=== PATIENT | female | born 1965 | race Caucasian/White ===

== ENCOUNTER → 2019-04-15 | Outpatient (CLI) | payer OTHER ==
[~2019-04-15] MED LIST: ASPIRIN CHEWABL81 M1 PO; CELEXA20 MG PO; NICODERM C14 MG/241 T; NORVASC2.5 MG PO; ORPHENADRINE C100 M1 PO; PRAVASTATIN SOD10 MG PO
[2019-04-16 07:04] LABS: HEPATITIS B SURFACE AG Negative (Negative); HEPATITIS C VIRUS ANTIBODY <0.1 s/co (0.0-0.9)
[2019-04-16 08:06] LABS: RHEUMATOID ARTHRITIS FACTOR <10.0 IU/mL (0.0-13.9)
== END | disposition home or self-care (01) ==
LOC: LAB 09:55
PROVIDERS: Family Medicine
DX: S10.96XA Insect bite of unspecified part of neck, initial encounter (principal); M51.37 Other intervertebral disc degeneration, lumbosacral region; M50.30 Other cervical disc degeneration, unspecified cervical region; M85.88 Other specified disorders of bone density and structure, other site; R20.0 Anesthesia of skin; X58.XXXA Exposure to other specified factors, initial encounter; Y93.89 Activity, other specified; Y92.89 Other specified places as the place of occurrence of the external cause; Y99.8 Other external cause status

== ENCOUNTER 2020-05-26 18:28 | Emergency (ER) | payer OTHER ==
[~2020-05-26] VITALS: Ht 165.1 cm; Wt 71.7 kg
[2020-05-26 20:13] VITALS: BP 119/54
[2020-05-26] MEDS ORDERED: TESSALON PERLE100 M1 PO (20:33)
[2020-05-26] MEDS ORDERED: CEFUROXIME AXE250 MG PO (20:33)
== END 2020-05-26 21:17 | disposition home or self-care (01) ==
LOC: ED 18:28
DX: J06.9 Acute upper respiratory infection, unspecified (principal); J32.1 Chronic frontal sinusitis; F17.200 Nicotine dependence, unspecified, uncomplicated; Z79.899 Other long term (current) drug therapy

== ENCOUNTER 2020-12-28 09:17 | Emergency (ER) | payer OTHER ==
[~2020-12-28] VITALS: Wt 68.0 kg
[~2020-12-28 09:17] MED LIST changes: +CEFUROXIME AXE250 MG PO; +TESSALON PERLE100 M1 PO
[2020-12-28 09:22] VITALS: BP 165/87
[2020-12-28] MEDS ORDERED: CYCLOBENZAPRINE10 MG PO (12:01)
[2020-12-28] MEDS ORDERED: PREDNISONE50 MG PO (12:01)
== END 2020-12-28 12:15 | disposition home or self-care (01) ==
LOC: ED 09:17
DX: M25.552 Pain in left hip (principal); I10 Essential (primary) hypertension; F32.9 Major depressive disorder, single episode, unspecified; F17.200 Nicotine dependence, unspecified, uncomplicated; Z79.899 Other long term (current) drug therapy; Z98.51 Tubal ligation status

== ENCOUNTER → 2022-02-19 | Outpatient (CLI) | payer OTHER ==
[~2022-02-19] MED LIST changes: +CYCLOBENZAPRINE10 MG PO; +PREDNISONE50 MG PO
== END | disposition home or self-care (01) ==
LOC: MAMMO 00:19 → US 11:00
PROVIDERS: ATTEND Nurse Practitioner Women's Health
DX: Z12.31 Encounter for screening mammogram for malignant neoplasm of breast (principal); R10.12 Left upper quadrant pain

== ENCOUNTER 2022-07-15 10:05 | Emergency (ER) | payer OTHER ==
[~2022-07-15] VITALS: Ht 165.1 cm; Wt 72.6 kg
[2022-07-15 10:58] LABS: BASO # 0.1 10*3/uL (0.0-0.1); BASO % 0.9 % (0.0-1.0); EOS # 0.2 10*3/uL (0.0-0.4); EOS % 3.2 % (1.0-4.0); LYMPH # 2.5 10*3/uL (1.3-4.4); LYMPH % 43.6 % (27.0-41.0); MEAN CELL VOLUME 94.4 fl (81.0-99.0); MEAN CORPUSCULAR HGB 31.3 pg (27.0-31.0); MEAN CORPUSCULAR HGB CONC 33.2 g/dl (33.0-37.0); MEAN PLATELET VOLUME 10.5 fl (9.6-12.3); MONO # 0.6 10*3/uL (0.1-1.0); NEUT # 2.4 10*3/uL (2.3-7.9); NEUT % 41.9 % (47.0-73.0); PLATELET COUNT AUTOMATED 285 10*3/uL (130-400); RED BLOOD COUNT 4.66 10*6/uL (4.10-5.10); RED CELL DISTRI WIDTH 13.1 % (0-14.5); WHITE BLOOD COUNT 5.7 10*3/uL (4.8-10.8)
[2022-07-15 11:20] LABS: ALKALINE PHOSPHATASE 73 U/L (45-117); BUN 13 mg/dl (7-24); CHLORIDE 109 mmol/L (98-107); CREATININE 0.88 mg/dL (0.55-1.02); POTASSIUM 4.1 mmol/L (3.5-5.1); SGOT/AST 10 IU/L (3-35); SGPT/ALT 18 U/L (12-78); SODIUM 139 mmol/L (136-145); TOTAL PROTEIN 7.4 gm/dL (6.4-8.2)
[2022-07-15 13:00] VITALS: BP 144/59
[2022-07-15] MEDS ORDERED: PREDNISONE50 MG PO ×2 (13:27→13:55)
== END 2022-07-15 13:54 | disposition home or self-care (01) ==
LOC: ED 10:05
PROVIDERS: Internal Medicine
DX: M54.10 Radiculopathy, site unspecified (principal); Z79.899 Other long term (current) drug therapy; Z90.89 Acquired absence of other organs; Z98.51 Tubal ligation status

== ENCOUNTER → 2022-07-16 | Outpatient (CLI) | payer OTHER | END | disposition home or self-care (01) | LOC: RAD 10:27 | PROVIDERS: ATTEND Nurse Practitioner Family | DX: M54.2 Cervicalgia (principal) ==

== ENCOUNTER 2023-07-29 12:04 | Inpatient (IN) | payer OTHER ==
[~2023-07-29] VITALS: Ht 162.5 cm; Wt 75.7 kg
[2023-07-29 12:25] VITALS: BP 155/73
[2023-07-29 14:12] LABS: BASO # 0.1 10*3/uL (0.0-0.1); BASO % 1.1 % (0.0-1.0); EOS # 0.2 10*3/uL (0.0-0.4); EOS % 3.1 % (1.0-4.0); HEMATOCRIT 40.9 % (37.0-47.0); LYMPH # 2.8 10*3/uL (1.3-4.4); LYMPH % 40.3 % (27.0-41.0); MEAN CELL VOLUME 97.1 fl (81.0-99.0); MEAN CORPUSCULAR HGB 32.1 pg (27.0-31.0); MEAN PLATELET VOLUME 10.7 fl (9.6-12.3); MONO # 0.7 10*3/uL (0.1-1.0); NEUT # 3.2 10*3/uL (2.3-7.9); NEUT % 45.2 % (47.0-73.0); PLATELET COUNT AUTOMATED 288 10*3/uL (130-400); RED BLOOD COUNT 4.21 10*6/uL (4.10-5.10); RED CELL DISTRI WIDTH 13.2 % (0-14.5)
[2023-07-29 14:24] LABS: ACT PARTIAL THROMBO TIME 31.3 SECONDS (20.0-32.1); INTERNATIONAL NORM RATIO 0.9 (2.0-3.5)
[2023-07-29 14:34] LABS: ALKALINE PHOSPHATASE 86 U/L (46-116); BUN 8 mg/dl (9-23); CHLORIDE 108 mmol/L (98-107); LIPASE 31 U/L (12-53); POTASSIUM 4.3 mmol/L (3.4-5.1); SGPT/ALT 8 U/L (10-49); TOTAL PROTEIN 7.2 gm/dL (6.0-8.0)
[2023-07-29 16:09] VITALS: BP 110/66
[2023-07-29 17:35] LABS: BILIRUBIN Negative (Negative); BLOOD Trace-Lysed (Negative); CLARITY Clear (Clear); COLOR Yellow (Yellow); GLUCOSE Negative (Negative); KETONE Negative (Negative); LEUKO ESTERASE 1+ (Negative); NITRITE Negative (Negative); SPECIFIC GRAVITY >= 1.030 (1.001-1.030); UROBILINOGEN 0.2 E.U./dl (0.0-1.0)
[2023-07-29 17:43] LABS: BACTERIA 1+; RBC 0-2 rbc/hpf (0-2)
[2023-07-29 19:12] VITALS: BP 111/56
[2023-07-30 06:23] LABS: BASO # 0.1 10*3/uL (0.0-0.1); EOS # 0.2 10*3/uL (0.0-0.4); EOS % 3.3 % (1.0-4.0); HEMATOCRIT 45.8 % (37.0-47.0); LYMPH # 2.8 10*3/uL (1.3-4.4); LYMPH % 41.8 % (27.0-41.0); MEAN CELL VOLUME 95.6 fl (81.0-99.0); MEAN CORPUSCULAR HGB 31.1 pg (27.0-31.0); MEAN CORPUSCULAR HGB CONC 32.5 g/dl (33.0-37.0); MEAN PLATELET VOLUME 10.9 fl (9.6-12.3); MONO # 0.6 10*3/uL (0.1-1.0); MONO % 9.4 % (3.0-9.0); NEUT % 44.4 % (47.0-73.0); PLATELET COUNT AUTOMATED 327 10*3/uL (130-400); RED BLOOD COUNT 4.79 10*6/uL (4.10-5.10); RED CELL DISTRI WIDTH 13.3 % (0-14.5); WHITE BLOOD COUNT 6.7 10*3/uL (4.8-10.8)
[2023-07-30 06:33] VITALS: BP 106/74
[2023-07-30 06:46] LABS: ALKALINE PHOSPHATASE 76 U/L (46-116); BUN 6 mg/dl (9-23); CHLORIDE 107 mmol/L (98-107); CHOLESTEROL 272 mg/dL (<200); LDL CHOLESTEROL 166 mg/dL (9-159); POTASSIUM 4.5 mmol/L (3.4-5.1); SGPT/ALT 11 U/L (10-49); TOTAL PROTEIN 7.2 gm/dL (6.0-8.0); TRIGLYCERIDES 272 mg/dl (<150)
[2023-07-30] MEDS ORDERED: MACROBID100 M1 PO (09:00)
== END 2023-07-30 14:00 | disposition home or self-care (01) | DRG 463 ==
LOC: ED 12:04 → EDHOLD 18:23
PROVIDERS: Emergency Medicine; Internal Medicine; ADMIT Internal Medicine; ATTEND Internal Medicine
DX: N30.00 Acute cystitis without hematuria (principal); F41.9 Anxiety disorder, unspecified; I10 Essential (primary) hypertension; E66.3 Overweight; K44.9 Diaphragmatic hernia without obstruction or gangrene; K57.30 Diverticulosis of large intestine without perforation or abscess without bleeding; K59.01 Slow transit constipation; F33.9 Major depressive disorder, recurrent, unspecified; R32 Unspecified urinary incontinence; Z98.51 Tubal ligation status; Z82.49 Family history of ischemic heart disease and other diseases of the circulatory system; Z83.3 Family history of diabetes mellitus; Z90.710 Acquired absence of both cervix and uterus; Z80.0 Family history of malignant neoplasm of digestive organs; Z68.28 Body mass index [BMI] 28.0-28.9, adult

== ENCOUNTER → 2023-10-07 | Outpatient (CLI) | payer OTHER ==
[~2023-10-07] MED LIST changes: +MACROBID100 M1 PO
== END | disposition home or self-care (01) ==
LOC: ORTHO 01:24
PROVIDERS: ATTEND Orthopaedic Surgery
DX: M18.11 Unilateral primary osteoarthritis of first carpometacarpal joint, right hand (principal); M67.431 Ganglion, right wrist

== ENCOUNTER → 2023-12-04 | Outpatient (CLI) | payer OTHER ==
[~2023-12-04] MED LIST changes: +IBUPROFEN600 MG PO; +LISINOPRIL20 MG PO; +PROZAC20 MG PO; +TYLENOL325 M1 PO
== END | disposition home or self-care (01) ==
LOC: RAD 13:11
PROVIDERS: ATTEND Nurse Practitioner Family
DX: M51.37 Other intervertebral disc degeneration, lumbosacral region (principal); M54.50 Low back pain, unspecified

== ENCOUNTER → 2023-12-05 | Day surgery (SDC) | payer OTHER ==
[2023-12-04 14:30] LABS: BUN 7 mg/dl (9-23); CHLORIDE 105 mmol/L (98-107)
[~2023-12-05] VITALS: Ht 165.1 cm; Wt 74.4 kg
[~2023-12-05] MED LIST changes: +BUPIVACAINE 0.5% 10 ML VIAL ONE; +Lactated Ringer's Solution 1,000 ML IV ONE; +Lactated Ringer's Solution 1,000 ML IV SCH; +Lidocaine Hydrochloride 30 ML VIAL ONE; +Midazolam Hydrochloride 2 MG/2 ML VIAL IV ONE; +PROPOFOL 200 MG/20 ML VIAL IV ONE; +ceFAZolin sodium 1GM/10ML IV SCH; +ceFAZolin sodium/sodium chlor 10 ML IV ONE
[2023-12-05 08:59] VITALS: BP 134/67
[2023-12-05 09:56] VITALS: BP 131/76
[2023-12-05 10:11] VITALS: BP 112/55
[2023-12-05 10:25] VITALS: BP 119/71
[2023-12-05 12:11] VITALS: BP 131/76
== END | disposition home or self-care (01) ==
LOC: SDC 12-02 11:00
PROVIDERS: ATTEND Orthopaedic Surgery
DX: G56.03 Carpal tunnel syndrome, bilateral upper limbs (principal); M18.11 Unilateral primary osteoarthritis of first carpometacarpal joint, right hand; I10 Essential (primary) hypertension; F41.9 Anxiety disorder, unspecified; K21.9 Gastro-esophageal reflux disease without esophagitis; E78.00 Pure hypercholesterolemia, unspecified; F31.9 Bipolar disorder, unspecified; F17.210 Nicotine dependence, cigarettes, uncomplicated; Z90.710 Acquired absence of both cervix and uterus; Z98.51 Tubal ligation status; Z98.890 Other specified postprocedural states

== ENCOUNTER → 2024-01-23 | Day surgery (SDC) | payer OTHER ==
[~2024-01-23] VITALS: Ht 165.1 cm; Wt 72.6 kg
[~2024-01-23] MED LIST changes: +ATORVASTATIN CA40 M1 PO; +LAMICTAL100 MG PO; +Midazolam Hydrochloride 2 MG/2 ML VIAL IV STA; +OMEPRAZOLE40 MG PO; +PEPCID20 MG PO; +WELLBUTRIN SR100 MG PO; -ceFAZolin sodium 1GM/10ML IV SCH; +ceFAZolin sodium/sodium chlor 1 GM in SYRINGE INFUSION 10 ML IV STA
[2024-01-23 06:46] VITALS: BP 137/63
[2024-01-23 08:06] VITALS: BP 110/62
[2024-01-23 08:21] VITALS: BP 119/65
[2024-01-23 08:36] VITALS: BP 147/67
== END | disposition home or self-care (01) ==
LOC: SDC 01-20 08:45
PROVIDERS: ATTEND Orthopaedic Surgery
DX: G56.01 Carpal tunnel syndrome, right upper limb (principal); I10 Essential (primary) hypertension; K21.9 Gastro-esophageal reflux disease without esophagitis; E78.00 Pure hypercholesterolemia, unspecified; F41.9 Anxiety disorder, unspecified; F31.9 Bipolar disorder, unspecified; F17.210 Nicotine dependence, cigarettes, uncomplicated; F15.90 Other stimulant use, unspecified, uncomplicated; Z90.710 Acquired absence of both cervix and uterus; Z98.51 Tubal ligation status; Z86.73 Personal history of transient ischemic attack (TIA), and cerebral infarction without residual deficits; Z98.890 Other specified postprocedural states; Z79.899 Other long term (current) drug therapy; Z83.3 Family history of diabetes mellitus; Z80.9 Family history of malignant neoplasm, unspecified; Z80.49 Family history of malignant neoplasm of other genital organs

== ENCOUNTER → 2024-05-06 | Outpatient (CLI) | payer OTHER ==
[~2024-05-06] MED LIST changes: -BUPIVACAINE 0.5% 10 ML VIAL ONE; -Lactated Ringer's Solution 1,000 ML IV ONE; -Lactated Ringer's Solution 1,000 ML IV SCH; -Lidocaine Hydrochloride 30 ML VIAL ONE; -Midazolam Hydrochloride 2 MG/2 ML VIAL IV ONE; -Midazolam Hydrochloride 2 MG/2 ML VIAL IV STA; -PROPOFOL 200 MG/20 ML VIAL IV ONE; -ceFAZolin sodium/sodium chlor 1 GM in SYRINGE INFUSION 10 ML IV STA; -ceFAZolin sodium/sodium chlor 10 ML IV ONE
== END | disposition home or self-care (01) ==
LOC: CT 08:41
PROVIDERS: ATTEND Internal Medicine Critical Care Medicine
DX: Z12.2 Encounter for screening for malignant neoplasm of respiratory organs (principal); R91.8 Other nonspecific abnormal finding of lung field; R53.83 Other fatigue; G47.33 Obstructive sleep apnea (adult) (pediatric); J45.20 Mild intermittent asthma, uncomplicated; Z87.891 Personal history of nicotine dependence; Z68.26 Body mass index [BMI] 26.0-26.9, adult

== ENCOUNTER → 2024-10-29 | Outpatient (CLI) | payer OTHER | END | disposition home or self-care (01) | LOC: CT 09:47 | PROVIDERS: ATTEND Internal Medicine Critical Care Medicine | DX: R91.1 Solitary pulmonary nodule (principal); R06.83 Snoring; R53.83 Other fatigue; G47.33 Obstructive sleep apnea (adult) (pediatric); J45.20 Mild intermittent asthma, uncomplicated; D14.31 Benign neoplasm of right bronchus and lung; Z87.891 Personal history of nicotine dependence; Z68.26 Body mass index [BMI] 26.0-26.9, adult ==